=== PATIENT | female | born 1985 | race Hispanic/Latino ===

== ENCOUNTER 2016-09-21 20:00 | Emergency (ER) ==
[2016-09-21 21:30] LABS: MANUAL DIFF NEEDED? NO
[2016-09-21 21:44] LABS: BASO% 0.2 % (0.0-0.8); EOS# 0.09 X1000 (0.0-0.7); EOS% 0.7 % (0.0-10.0); HEMATOCRIT 43.3 % (37.0-47.0); HEMOGLOBIN 15.4 g/dL (12.0-16.0); IMM GRAN# 0.04 X1000 (0.0-0.04); IMM GRAN% 0.3 % (0.0-0.5); LYMPH# 2.64 X1000 (1.2-3.4); LYMPH% 20.7 % (20.5-51.1); MCH 29.7 PG (27-31); MCHC 35.6 g/dL (33-37); MCV 83.4 FL (81-99); MONO# 0.72 X1000 (0.11-0.59); MONO% 5.7 % (1.7-9.3); MPV 11.9 FL (7.4-10.4); NEUT% 72.4 % (42.2-75.2); PLT 146 X1000 (130-400); RBC 5.19 XMIL (4.2-5.4)
[2016-09-21 21:59] LABS: AGAP 12; ALKALINE PHOSPHATASE 141 U/L (32-104); BUN 12 mg/dL (8-22); CALCIUM 9.1 mg/dL (8.8-10.2); CHLORIDE 97 mmol/L (98-107); COSMO 271; GOT 28 U/L (10-30); GPT 57 U/L (10-36); POTASSIUM 3.4 mmol/L (3.5-5.1); SODIUM 131 mmol/L (136-145); TCO2 22 mmol/L (25-35); TOTAL PROTEIN 7.2 g/dL (6.3-8.3)
[2016-09-21] MEDS ORDERED: MORPHINE IV ONE (22:17)
[2016-09-21] MEDS ORDERED: NS 1,000 ML IV ONE (22:17)
[2016-09-21] MEDS ORDERED: ZOFRAN IV ONE (22:17)
--- NOTE | 2016-09-21 22:17 | PROVIDER DOCUMENTATION ---
HPI-Female /OB/Breast - General Source: reports: patient - History of Present Illness-Female /OB Location of complaint: reports: vaginal Radiation: reports: none Quality of Pain: reports: cramping Severity in ED: reports: severe Onset/Duration: reports: just prior to arrival Timing: reports: still present Vaginal Symptoms: reports: abnormal bleeding. denies: passing clots/tissue Vaginal Bleeding Amount: Large/Heavy Pads/Day: 1 <Perfecto Dietz - Last Filed: 09/21/16 22:45> <Mattie Garcia - Last Filed: 09/22/16 00:19> - General Chief Complaint: Female Stated Complaint: MISCARRIAGE Time Seen by Provider: 09/21/16 21:14 Allergies/Adverse Reactions: Patient Allergies Allergy/AdvReac Type Severity Reaction Status Date / Time No Known Allergies Allergy Verified 04/01/15 09:41 Home Medications: Glyburide [Diabeta] 2.5 mg PO HS 05/02/15 - History of Present Illness-Female /OB Nature of Presenting Problem: 31 y/o F presents to the ED with cramps and bleeding after being seen by her OB in [place]. Pt states she was told this at 8 week is not viable. Give Minsoprotsol and norco for home. At 2pm the bleeding and cramps began. 1 pad since the bleeding began. Pt is G-5 P-3 (Perfecto Dietz) Review of Systems - Adult - REVIEW OF SYSTEMS - ADULT Constitutional: denies: chills, fever Eyes: reports: no symptoms reported Ears, Nose, Mouth & Throat: reports: no symptoms reported Cardiovascular: reports: no symptoms reported Respiratory: denies: cough, shortness of breath, wheezing Gastrointestinal: denies: nausea, vomiting Genitourinary: denies: urinary retention, urgency Musculoskeletal: reports: no symptoms reported Integumentary: reports: no symptoms reported Neurological: reports: no symptoms reported Psychiatric: reports: no symptoms reported Endocrine: reports: no symptoms reported Hematologic/Lymphatic: reports: no symptoms reported Allergic/Immunologic: reports: no symptoms reported All Other Systems: Reviewed and Negative <Perfecto Dietz - Last Filed: 09/21/16 22:45> Past History - Adult - PAST MEDICAL HISTORY-ADULT Review of Records: reports: Old Records Reviewed, Nursing Assessment Review, Medications Reviewed - PRIOR SURGERIES/PROCEDURES Surgical/Procedure History: reports: appendectomy, - IMMUNIZATION STATUS Childhood Immunizations: See Nurse Assessment Flu Vaccine: See Nurse Assessment - SOCIAL HISTORY Smoking: non-smoker Living Situation: family <Perfecto Dietz - Last Filed: 09/21/16 22:45> Physical Exam-General - PHYSICAL EXAM-ADULT Initial Vital Signs Reviewed: Yes - CONSTITUTIONAL General Appearance: appears well, alert, no apparent distress - EYES Eyes: PERRL/EOMI - HEAD, EARS, NOSE, MOUTH & THROAT HENMT: moist mucous membranes, normal ENT inspection, TMs normal, pharynx normal - NECK Neck: non-tender, full range of motion, supple, normal inspection - RESPIRATORY Respiratory: lungs clear, normal breath sounds, no pleuratic chest pain, no respiratory distress, no accessory muscle use - CARDIOVASCULAR Cardiovascular: normal peripheral pulses, regular rate, rhythm - GASTROINTESTINAL (ABDOMEN) Abdominal Exam: normal bowel sounds, non tender, soft - GENITOURINARY Female Genitalia/Pelvic Exam: active bleeding, other (no visible clots on pad) - MUSCULOSKELETAL Back Exam: normal inspection, no CVA tenderness, no vertebral tenderness Extremity: normal range of motion, non-tender, normal gait, normal inspection, no pedal edema - SKIN Integumentary: normal color, normal turgor, warm/dry - NEUROLOGIC Neurologic: grossly normal, no motor/sensory deficits - PSYCHIATRIC Psych/Mental Status: normal mood/affect, normal thought content, normal thought process, oriented x 3 <Perfecto Dietz - Last Filed: 09/21/16 22:45> - GENITOURINARY Female Genitalia/Pelvic Exam: external exam normal, active bleeding, blood, other (tissue extracted from vaginal canal from ; no products visualized in cervix) <Mattie Garcia - Last Filed: 09/22/16 00:19> Progress <Perfecto Dietz - Last Filed: 09/21/16 22:45> <Mattie Garcia - Last Filed: 09/22/16 00:19> - PLAN OF CARE/RESULTS Progress/Plan/Lab Results: Laboratory Tests 09/21/16 09/21/16 09/21/16 21:25 21:25 21:25 WBC 12.74 H RBC 5.19 Hgb 15.4 Hct 43.3 MCV 83.4 MCH 29.7 MCHC 35.6 RDW Std Deviation 12.1 Plt Count 146 MPV 11.9 H Immature Gran % (Auto) 0.3 Neut % (Auto) 72.4 Lymph % (Auto) 20.7 [place] % (Auto) 5.7 Eos % (Auto) 0.7 Baso % (Auto) 0.2 Immature Gran # (Auto) 0.04 Neut # (Auto) 9.23 H Lymph # (Auto) 2.64 [place] # (Auto) 0.72 H Eos # (Auto) 0.09 Baso # (Auto) 0.02 Sodium 131 L Potassium 3.4 L Chloride 97 L Carbon Dioxide 22 L Anion Gap 12 BUN 12 Creatinine 0.4 L Estimated GFR/1.73 m2 > 60 BUN/Creatinine Ratio 30 Glucose 253 H Calculated Osmolality 271 Calcium 9.1 Total Bilirubin 0.60 AST 28 ALT 57 H Alkaline Phosphatase 141 H Total Protein 7.2 Albumin 4.0 Globulin 3.0 Albumin/Globulin Ratio 1.0 Ser , Semi-Qnt 1481.0 Blood Type ABO/Rh Antibody Screen Screen RhIG Candidate? 09/21/16 09/21/16 21:25 21:25 WBC RBC Hgb Hct MCV MCH MCHC RDW Std Deviation Plt Count MPV Immature Gran % (Auto) Neut % (Auto) Lymph % (Auto) [place] % (Auto) Eos % (Auto) Baso % (Auto) Immature Gran # (Auto) Neut # (Auto) Lymph # (Auto) [place] # (Auto) Eos # (Auto) Baso # (Auto) Sodium Potassium Chloride Carbon Dioxide Anion Gap BUN Creatinine Estimated GFR/1.73 m2 BUN/Creatinine Ratio Glucose Calculated Osmolality Calcium Total Bilirubin AST ALT Alkaline Phosphatase Total Protein Albumin Globulin Albumin/Globulin Ratio Ser , Semi-Qnt Blood Type O NEGATIVE ABO/Rh O NEGATIVE Antibody Screen NEGATIVE Screen NEGATIVE RhIG Candidate? YES Orders Category Date Time Status CBC WITH DIFF [HEME] Stat Lab 09/21/16 21:25 Completed COMPREHENSIVE METABOLIC PANEL [CHEM] Stat Lab 09/21/16 21:25 Completed BLEED SCREEN [BBK] Stat Lab 09/21/16 21:25 Results QUANT TEST Stat Lab 09/21/16 21:25 Completed RHOGAM WORKUP [BBK] Stat Lab 09/21/16 21:25 Results RHOGAM [BBK] Stat Lab 09/21/16 21:25 Results TYPE & SCREEN [BBK] Stat Lab 09/21/16 21:25 Completed 0.9% Sodium Chloride Inj [Ns] 1,000 ml Med 09/21/16 22:17 Discontinued IV 999 mls/hr Morphine Med 09/21/16 22:17 Discontinued 4 mg IV NOW ONE Ondansetron [Zofran] Med 09/21/16 22:17 Discontinued 4 mg IV NOW ONE Vital Signs Temp Pulse Resp BP Pulse Ox 09/21/16 20:20 98 F 91 H 18 143/91 98 No Known Allergies Allergy (Verified 04/01/15 09:41) Glyburide [Diabeta] 2.5 mg PO HS 05/02/15 Hydrocodone/APAP 5 mg/325 mg [[place]-5] 1 each PO Q6H PRN PRN #7 tablet 07/13/15 Laboratory 09/21/16 09/21/16 09/21/16 21:25 21:25 21:25 WBC 12.74 H RBC 5.19 Hgb 15.4 Hct 43.3 MCV 83.4 MCH 29.7 MCHC 35.6 RDW Std Deviation 12.1 Plt Count 146 MPV 11.9 H Immature Gran % (Auto) 0.3 Neut % (Auto) 72.4 Lymph % (Auto) 20.7 [place] % (Auto) 5.7 Eos % (Auto) 0.7 Baso % (Auto) 0.2 Immature Gran # (Auto) 0.04 Neut # (Auto) 9.23 H Lymph # (Auto) 2.64 [place] # (Auto) 0.72 H Eos # (Auto) 0.09 Baso # (Auto) 0.02 Sodium Potassium Chloride Carbon Dioxide Anion Gap BUN Creatinine Estimated GFR/1.73 m2 BUN/Creatinine Ratio Glucose Calculated Osmolality Calcium Total Bilirubin AST ALT Alkaline Phosphatase Total Protein Albumin Globulin Albumin/Globulin Ratio Ser , Semi-Qnt Blood Type O NEGATIVE ABO/Rh O NEGATIVE Antibody Screen NEGATIVE Screen NEGATIVE RhIG Candidate? YES 09/21/16 09/21/16 21:25 21:25 WBC RBC Hgb Hct MCV MCH MCHC RDW Std Deviation Plt Count MPV Immature Gran % (Auto) Neut % (Auto) Lymph % (Auto) [place] % (Auto) Eos % (Auto) Baso % (Auto) Immature Gran # (Auto) Neut # (Auto) Lymph # (Auto) [place] # (Auto) Eos # (Auto) Baso # (Auto) Sodium 131 L Potassium 3.4 L Chloride 97 L Carbon Dioxide 22 L Anion Gap 12 BUN 12 Creatinine 0.4 L Estimated GFR/1.73 m2 > 60 BUN/Creatinine Ratio 30 Glucose 253 H Calculated Osmolality 271 Calcium 9.1 Total Bilirubin 0.60 AST 28 ALT 57 H Alkaline Phosphatase 141 H Total Protein 7.2 Albumin 4.0 Globulin 3.0 Albumin/Globulin Ratio 1.0 Ser , Semi-Qnt 1481.0 Blood Type ABO/Rh Antibody Screen Screen RhIG Candidate? Discussed pt with Dr. Miller; he agreed with d/c plan and f/u with her OB tomorrow. Discussed f/u precautions with pt and continued medication use. ( Mattie Garcia) Departure <Perfecto Dietz - Last Filed: 09/21/16 22:45> - Departure Time of Disposition Order: 00:15 Certified Medical Emergency: Emergent <Mattie Garcia - Last Filed: 09/22/16 00:19> - Departure DIAGNOSIS: Miscarriage Disposition: HOME 01 Condition: Stable Additional Instructions: Continue taking medications as directed. Follow up with OB tomorrow for a recheck. Return if bleeding gets worse or symptoms persist. ED Follow Up Instructions: You have been treated by a care provider in the Emergency Department. These instructions are being provided to you so you can have an understanding of how to care for yourself upon discharge. Upon discharge from the Emergency Department, you are responsible for making arrangements for follow-up care by a physician of your choice. Take all prescribed medications as directed. Return to the Emergency Department immediately for any new or worsening symptoms. You may call the Physician Referral phone number at [phone] to obtain a list of Physicians who are taking new patients. Referrals: Fredy Bloom MD [STAFF PHYSICIAN] - None,PCP [Primary Care Provider] - Forms: Return to School/Parent Work Attestation - Scribe Verification/Attestation Scribe:: Perfecto Dietz Acting as Scribe for:: Mattie Garcia Scribe documention review:: This chart was documented by a scribe and accurately reflects the service the provider performed and the decisions made by the provider. - Physician/ Mid-level Attestation Patient care was provided by Mid-level provider (DISTRIBUTION COLLECTION OPERATOR/PA):: Yes Mid-level provider:: Mattie Garcia Mid-level documentation review:: The Mid-level provider documentation, treatment plan and medical decision making was reviewed by the physician who agrees with all treatment and medical decision making by the MLP. <Perfecto Dietz - Last Filed: 09/21/16 22:45> Physician Attestation
[2016-09-22 00:44] VITALS: BP 118/62
== END 2016-09-22 00:50 | disposition home or self-care (01) ==
LOC: P.ED 20:00
DX: O03.9 Complete or unspecified spontaneous abortion without complication (principal); Z79.899 Other long term (current) drug therapy
CPT/HCPCS: 36415; 80053; 84702; 85025; 85461; 86850; 86900; 86901; 96361; 96374; 96375; J2270; J2405; J2790; J7030